=== PATIENT | female | born 1945 ===

== ENCOUNTER 2018-03-04 07:11 | Day surgery (SDC) | payer MEDICARE, MEDICAID ==
[2018-03-04] MEDS ORDERED: Lactated Ringer's 500 ML IV ONE (07:35)
[2018-03-04] MEDS ORDERED: Propofol 10 mg/ml Inj (20 ML) ONE (07:59)
[2018-03-04] MEDS ORDERED: Etomidate 20 mg/10ml Inj IV ONE (08:23)
[2018-03-04 09:04] VITALS: PULSE 61; RESP 13; TEMP 97.3; O2SAT 98
[2018-03-04 09:05] VITALS: BP 124/78
== END 2018-03-04 11:54 | disposition home or self-care (01) ==
LOC: H.ENDO 07:11
PROVIDERS: ATTEND Internal Medicine Gastroenterology
DX: K30 Functional dyspepsia (principal); M19.90 Unspecified osteoarthritis, unspecified site; J45.909 Unspecified asthma, uncomplicated; E11.9 Type 2 diabetes mellitus without complications; I10 Essential (primary) hypertension; K21.9 Gastro-esophageal reflux disease without esophagitis; K59.00 Constipation, unspecified; E66.01 Morbid (severe) obesity due to excess calories; K29.50 Unspecified chronic gastritis without bleeding
CPT/HCPCS: 43239; 82948; 88305; J2001; J2704; J7120